=== PATIENT | male | born 1980 | race Caucasian/White ===

== ENCOUNTER 2017-03-10 11:57 | Emergency (ER) | payer OTHER ==
--- NOTE | 2017-03-10 12:13 | ER Document Report ---
ED General - General Chief Complaint: Insect Bite Stated Complaint: POSSIBLE INSECT BITE Mode of Arrival: Ambulatory Information source: Patient Notes: Patient is a 36-year-old male who presents with insect bites to his right chest wall in the midaxillary line. He states he was working outside in the yard approximately one hour ago when he felt some burning and stinging to the area. He then sat down and started having a headache and felt lightheaded with some throat "tightness". He states he has previously had reactions to bug bites that have required him to be observed in the emergency department after receiving IM medications. He was just concerned that if his condition worsened he wanted to be observed. He did take one chewable children's Benadryl prior to arrival. Denies any shortness of breath, dizziness, difficulty swallowing, chest pain, nausea or vomiting. TRAVEL OUTSIDE OF THE [place] IN LAST 30 DAYS: No - Related Data Allergies/Adverse Reactions: No Known Allergies Allergy (Verified 01/28/15 10:44) Past Medical History - General Information source: Patient - Social History Smoking Status: Unknown if Ever Smoked Family History: Thyroid Disfunction. denies: Arthritis, CAD, CVA, DM, Hyperlipidemia, Hypertension, Malignancy Patient has suicidal ideation: No Patient has homicidal ideation: No Renal/ Medical History: Denies: Hx Peritoneal Dialysis Musculoskeltal Medical History: Reports Hx Arthritis, Reports Hx Musculoskeletal Deformity, Reports Hx Musculoskeletal Trauma Psychiatric Medical History: Reports: Hx Post Traumatic Stress Disorder Past Surgical History: Reports: Hx Orthopedic Surgery - Right knee - Immunizations Immunizations up to date: Yes Hx Diphtheria, Pertussis, Tetanus Vaccination: Yes Review of Systems - Review of Systems Constitutional: See HPI EENT: See HPI Cardiovascular: No symptoms reported Respiratory: See HPI Gastrointestinal: No symptoms reported Genitourinary: No symptoms reported Male Genitourinary: No symptoms reported Musculoskeletal: No symptoms reported Skin: See HPI Hematologic/Lymphatic: No symptoms reported Neurological/Psychological: No symptoms reported Physical Exam - Vital signs Vitals: Temp Pulse Resp BP Pulse Ox 97.8 F 87 20 140/91 H 98 03/10/17 12:00 03/10/17 12:00 03/10/17 12:00 03/10/17 12:00 03/10/17 12:00 Interpretation: Hypertensive - Notes Notes: PHYSICAL EXAM: CONSTITUTIONAL: Alert and oriented, well-appearing and in no acute distress. Speaking in full sentences without difficulty. No hypoxia or tachypnea in triage. HENT: Normocephalic, atraumatic. Ear canals without erythema or foreign body, TMs pearly underwood with good bony landmarks. Nares clear without erythema, septal hematoma or deviation, airway patent. Oropharynx clear without edema, erythema, tonsilar exudate or malocclusion. Trachea midline. Uvula midline. Moist mucous membranes. EYES: Pupils equal round and reactive to light, EOM intact. Sclera anicteric, conjunctiva are normal. No entrapment. NECK: supple without lymphadenopathy. ROM intact. HEART: Regular rate and rhythm without murmurs. LUNGS: CTAB and equal. No wheezes, rales or rhonchi. GI: Normactive bowel sounds. Nontender, non-distended. No organomegaly. no CVAT. SKIN: Warm and dry. Normal turgor. No lesions noted. A few scattered erythematous papules noted to right chest wall and mid axillary line without urticaria noted. Course - Re-evaluation Re-evalutation: 03/10/17 12:26 Patient seen and examined. There is no respiratory distress. He is speaking in full sentences without difficulty. He is not hypoxic or tachypneic. No oropharynx edema. Lungs are clear to auscultation bilateral and equal. Will give Benadryl, prednisone and Pepcid and continue to monitor. 03/10/17 13:34 Patient observed in ED for 1 hour. He denies any further exacerbation of symptoms - states he feels better. No respiratory distress or difficulty breathing noted. No further urticaria noted. Discussed supportive instructions. At this time, will discharge with return precautions and follow-up recommendations. Verbal discharge instructions given at the bedside and opportunity for questions given. Medication warnings reviewed. Patient is in agreement with this plan and has verbalized understanding of return precautions and the need for primary care follow-up in the next 24-72 hours. - Vital Signs Vital signs: Temp Pulse Resp BP Pulse Ox 97.8 F 87 20 140/91 H 98 03/10/17 12:00 03/10/17 12:00 03/10/17 12:00 03/10/17 12:00 03/10/17 12:00 Discharge - Discharge Clinical Impression: Insect bite Qualifiers: Encounter type: initial encounter Qualified Code(s): W57.XXXA - Bitten or stung by nonvenomous insect and other nonvenomous arthropods, initial encounter Condition: Stable Disposition: HOME, SELF-CARE Additional Instructions: Allergic Contact Dermatitis You have a local allergic reaction, called contact dermatitis. This an allergy to something in contact with your skin. Poison ricardo, jewelry, soaps, perfumes, and chemicals are common causes. Typically, an itchy rash develops a few days after the exposure. If the reaction is severe, blisters may develop. Two to three weeks may be required for healing. Generally, treatment consists of: (1) a thorough washing with soap to remove the offending substance, (2) application of a cortisone cream, and (3) antihistamines for itching. If the reaction is particularly severe, further measures may be required. These can include soaking in epsom salts or Lisbeth's solution, and oral cortisone medications. Call the doctor if the rash worsens despite treatment, or if signs of infection occur such as spreading redness, red streaks, swollen glands, swelling , or fever. ACUTE ALLERGIC REACTION: Your symptoms are due to an allergic reaction. Allergy can cause hives, swelling of the hands, feet, and face, hoarseness, and difficulty swallowing or breathing. It may be due to exposure to medication, animal dander, foods, infection, or insect bites. Medication is a common cause, even when prior use of this same medication caused no problems. Acute treatment may include adrenalin and antihistamines. Usually, the specific allergic agent can't be identified unless repeated episodes occur. Home treatment includes the following: (1) Stop any suspicious medications. This will be discussed with you. (2) Oral antihistamines for the next four to five days. Example, diphenhydramine (Benadryl) every four hours. (3) You may also use cimetidine (Tagamet), ranitidine (Zantac), or famotidine ( Pepcid) every four hours if diphenhydramine is not controlling itching and hives. (4) Avoid aspirin until the hives completely disappear. (5) Avoid hot baths or showers until the hives are completely gone. Call the doctor if faintness, difficulty swallowing, tightness in the chest , or wheezing occurs. STEROID MEDICATION: You have been given a medicine of the cortisone/steroid class. This medication is used to control inflammation or allergy. It is usually only given for a short period of time, until the acute process subsides. There are usually no side effects from short-term use of cortisone-like medications. Some persons feel an increased sense of well-being and are not sleepy at bedtime. Long-term use of cortisone medications is best avoided, unless required for a severe condition. If your condition does not remit, or relapses after the course of corticosteroid medication, you should consult your physician. ACID-SUPPRESSING MEDICATION: You have a prescription for medicine which reduces the stomach's secretion of acid. Examples include Zantac, Tagament, and Pepcid. These drugs are often used to allow healing of ulcers or esophagitis. They may be needed to prevent recurrence of ulcers in some patients, or to prevent damage from acid reflux in the esophagus. Take all medication as prescribed, even after the pain is gone. Regular antacids may be added as needed if you have symptoms while taking this medicine. These medications sometimes are prescribed for allergic reactions because they have anti-histaminic effects and relieve the rash and itching of the reaction. There are usually no side effects from this medication. But, in rare cases and particularly in the elderly, serious problems can occur. Contact your doctor if there is fever, rash, hallucinations, confusion, or unusual bruising. Contact your doctor at once if you develop lightheadedness, black or bloody stool, or bloody vomitus. ANTIHISTAMINES: An antihistamine has been given and/or prescribed to control your symptoms. Antihistamines are used for many reasons, including itching, watering eyes, runny nose, allergic swelling, hives, and insect stings. Antihistamines may cause drowsiness, especially with the first dose. Do not operate machinery or drive while under the effects of the medication. Other common side effects include dry mouth and eyes. In older persons, antihistamines can occasionally cause urinary retention, constipation, and trouble focusing the eyes. Do not combine the medication with alcohol, or with any other medication without talking to your doctor. USE OF DIPHENHYDRAMINE: The use of diphenhydramine (Benadryl) has been recommended to control allergic symptoms. The 25 mg strength is available over- the-counter, as well as the elixir. This antihistamine is used for many symptoms. It's useful for itching, watering eyes and nose, allergic swelling, hives, and insect stings. The medication can be repeated four times daily. Age Elixir (12.5 mg/tsp) 25 mg pill 2-3 yr 1/2 tsp 4-8 yr 1 tsp 9-14 yr 2 tsp one tab adult 1-2 tabs Antihistamines may cause drowsiness, especially with the first dose. Do not operate machinery or drive while under the effects of the medication. Do not combine the medication with alcohol, or with any other medication without talking to your doctor. FOLLOW-UP CARE: If you have been referred to a physician for follow-up care, call the physician s office for an appointment as you were instructed or within the next two days. If you experience worsening or a significant change in your symptoms, notify the physician immediately or return to the Emergency Department at any time for re-evaluation. Prescriptions: Famotidine [Pepcid 20 mg Tablet] 20 mg PO DAILY #12 tablet Prednisone [Deltasone 20 mg Tablet] 3 tab PO DAILY 5 Days Forms: Elevated Blood Pressure, Return to Work
[2017-03-10] MEDS ORDERED: PREDNISONE 20 MG TABLET PO ONE (12:22)
[2017-03-10] MEDS ORDERED: FAMOTIDINE 20 MG TABLET PO ONE (12:23)
[2017-03-10] MEDS ORDERED: DIPHENHYDRAMINE HCL 50 MG CAPSULE PO ONE (12:23)
[2017-03-10 13:52] VITALS: BP 125/69
== END 2017-03-10 13:49 | disposition home or self-care (01) ==
LOC: ER 11:57
DX: S20.361A Insect bite (nonvenomous) of right front wall of thorax, initial encounter (principal); W57.XXXA Bitten or stung by nonvenomous insect and other nonvenomous arthropods, initial encounter
CPT/HCPCS: 99281; J7512

== ENCOUNTER 2017-03-10 21:38 | Emergency (ER) | payer OTHER ==
--- NOTE | 2017-03-10 22:58 | ER Document Report ---
ED General - General Chief Complaint: Allergic Reaction Stated Complaint: REVISIT/REACTION FROM INSECT BITE Notes: Patient is a 36-year-old male who presents with complaints of having repeat allergic reaction from insect bite. He was seen her earlier today. He was given prednisone as well as Pepcid and Benadryl. Patient says that he has not yet filled his prescriptions. Start feels that his throat was tightening and therefore he took Benadryl and came straight to the ER. Take 25 mg. Tightness has resolved. He is just very scared and concerned that the tightness will return. He denies any rash or redness. No other complaints at this time. TRAVEL OUTSIDE OF THE [place] IN LAST 30 DAYS: No - Related Data Allergies/Adverse Reactions: No Known Allergies Allergy (Verified 01/28/15 10:44) Past Medical History - Social History Smoking Status: Never Smoker Frequency of alcohol use: None Drug Abuse: None Family History: Thyroid Disfunction. denies: Arthritis, CAD, CVA, DM, Hyperlipidemia, Hypertension, Malignancy Renal/ Medical History: Denies: Hx Peritoneal Dialysis Musculoskeltal Medical History: Reports Hx Arthritis, Reports Hx Musculoskeletal Deformity, Reports Hx Musculoskeletal Trauma Psychiatric Medical History: Reports: Hx Post Traumatic Stress Disorder Past Surgical History: Reports: Hx Orthopedic Surgery - Right knee - Immunizations Immunizations up to date: Yes Hx Diphtheria, Pertussis, Tetanus Vaccination: Yes Review of Systems - Review of Systems Notes: My Normal Review Basic REVIEW OF SYSTEMS: CONSTITUTIONAL : Denies fever, chills, or sweats. Denies recent illness. EENT: Sensation of throat tightness. CARDIOVASCULAR: Denies chest pain. RESPIRATORY: Denies cough, cold, or chest congestion. Denies shortness of breath, difficulty breathing, or wheezing. GASTROINTESTINAL: Denies abdominal pain. Denies nausea, vomiting, or diarrhea. Denies constipation. Last BM: MUSCULOSKELETAL: Denies neck or back pain or joint pain or swelling. SKIN: Bug bite to right back. NEUROLOGICAL: Denies altered mental status or loss of consciousness. Denies headache. Denies weakness or paralysis or loss of use of either side. Denies problems with gait or speech. Denies sensory or motor loss. ALL OTHER SYSTEMS REVIEWED AND NEGATIVE. Physical Exam - Vital signs Vitals: Temp Pulse Resp BP 97.5 F 90 18 150/79 H 03/10/17 21:43 03/10/17 21:43 03/10/17 21:43 03/10/17 21:43 - Notes Notes: General Appearance: Well nourished, alert, cooperative, no acute distress, no obvious discomfort. Well-appearing. Normal voice. No hoarseness. No stridor. Vitals: reviewed, See vital signs table. Head: no swelling or tenderness to the head Eyes: PERRL, EOMI, Conjuctiva clear Mouth: No decreasd moisture Throat: No tonsillar inflammation, No airway obstruction, No lymphadenopathy. No pharyngeal swelling erythema. Neck: Supple, no neck tenderness, No thyromegaly Lungs: No wheezing, No rales, No rhonci, No accessory muscle use, good air exchange bilaterally. Heart: Normal rate, Regular rythm, No murmur, no rubly Extremities: strength 5/5 in all extremities, good pulses in all extremities, no swelling or tenderness in the extremities, no edema. Skin: 4 small bug bites of the right upper back. No surrounding erythema or redness. Neuro: speech clear, oriented x 3, normal affect, responds appropriately to questions. Course - Vital Signs Vital signs: Temp Pulse Resp BP Pulse Ox 97.5 F 90 18 150/79 H 03/10/17 21:43 03/10/17 21:43 03/10/17 23:01 03/10/17 21:43 - Transfer of Care Notes: 03/11/17 02:23 We have watched patient for approximate 4 hours now. She's not had any recurrent throat tightness. He said no difficulty breathing. No hives-like rash. He says he has some muscular soreness but that is about it. He looks and feels well. His voice is normal. Informed him he should take 25 mg Benadryl every 6 hours for the next 24 hours. After that she can wait taken less he is having symptoms. I will prescribe him an Adrenaclick pen. I encourage him to return to the ER immediately if he has difficulty breathing, difficulty swallowing, or feels unwell. Patient agrees with plan and will be discharged home. Dictation of this chart was performed using voice recognition software; therefore, there may be some unintended grammatical errors. Discharge - Discharge Clinical Impression: Allergic reaction Qualifiers: Encounter type: subsequent encounter Qualified Code(s): T78.40XD - Allergy, unspecified, subsequent encounter Condition: Good Disposition: HOME, SELF-CARE Additional Instructions: ACUTE ALLERGIC REACTION: Your symptoms are due to an allergic reaction. Allergy can cause hives, swelling of the hands, feet, and face, hoarseness, and difficulty swallowing or breathing. It may be due to exposure to medication, animal dander, foods, infection, or insect bites. Medication is a common cause, even when prior use of this same medication caused no problems. Acute treatment may include adrenalin and antihistamines. Usually, the specific allergic agent can't be identified unless repeated episodes occur. Home treatment includes the following: (1) Stop any suspicious medications. This will be discussed with you. (2) Oral antihistamines for the next four to five days. Example, diphenhydramine (Benadryl) every four hours. (3) You may also use cimetidine (Tagamet), ranitidine (Zantac), or famotidine ( Pepcid) every four hours if diphenhydramine is not controlling itching and hives. (4) Avoid aspirin until the hives completely disappear. (5) Avoid hot baths or showers until the hives are completely gone. Call the doctor if faintness, difficulty swallowing, tightness in the chest , or wheezing occurs. EPINEPHRINE: An injection of epinephrine (also called adrenalin) is used to treat allergic reactions, asthma, and some other medical conditions. It is a stimulant medication that consticts blood vessels, relaxes smooth muscles such as in the bronchioles of the lung, elevates blood pressure, and increases heart rate. It can temporarily make you feel very nervous and shakey, but it's affects last only a short time, about 15 to 30 minutes at most. ANTIHISTAMINES: An antihistamine has been given and/or prescribed to control your symptoms. Antihistamines are used for many reasons, including itching, watering eyes, runny nose, allergic swelling, hives, and insect stings. Antihistamines may cause drowsiness, especially with the first dose. Do not operate machinery or drive while under the effects of the medication. Other common side effects include dry mouth and eyes. In older persons, antihistamines can occasionally cause urinary retention, constipation, and trouble focusing the eyes. Do not combine the medication with alcohol, or with any other medication without talking to your doctor. FOLLOW-UP CARE: If you have been referred to a physician for follow-up care, call the physician s office for an appointment as you were instructed or within the next two days. If you experience worsening or a significant change in your symptoms, notify the physician immediately or return to the Emergency Department at any time for re-evaluation. Take benadryl every 6 hours for the next 24 hours. Please return to the ER immediately if you have difficulty breathing, spreading hives, or feeling that your throat is becoming tight. Please use the Adrenaclick pen if you have difficulty breathing, or feel that you are having a severe reaction. You must return to the ER if you have to use the Adrenaclick pen. Prescriptions: Epinephrine [Adrenaclick] 0.3 mg IM ONCE PRN #1 kit PRN Reason: severe allergic reaction
[2017-03-11] MEDS ORDERED: DIPHENHYDRAMINE HCL 25 MG CAPSULE PO ONE (02:16)
[2017-03-11 02:43] VITALS: BP 125/61
== END 2017-03-11 02:42 | disposition home or self-care (01) ==
LOC: ER 21:38
DX: T78.40XD Allergy, unspecified, subsequent encounter (principal)
CPT/HCPCS: 99283